=== PATIENT | male | born 1955 | race Caucasian/White ===

== ENCOUNTER 2016-07-30 16:18 | Emergency (ER) | payer BC, MEDICARE ==
[2016-07-30 15:36] LABS: BASOPHILS 0.6 %; BASOPHILS ABSOLUTE 0.04 10/3/uL (0.0-0.16); EOSINOPHILS 3.5 %; EOSINOPHILS ABSOLUTE 0.22 10/3/uL (0.0-0.53); HEMATOCRIT 39.8 % (40.0-51.0); HEMOGLOBIN 13.1 g/dL (13.6-17.8); IMMATURE GRANULOCYTES 0.3 %; IMMATURE GRANULOCYTES ABSOLUTE 0.02 10/3/uL (0.0-0.11); LYMPHOCYTES 36.6 %; LYMPHOCYTES ABSOLUTE 2.32 10/3/uL (0.67-4.30); MEAN CORPUS HGB CONC 32.9 g/dL (32.0-36.0); MEAN CORPUSCULAR HEMOGLOB 29.5 pg (26.0-34.0); MEAN CORPUSCULAR VOLUME 89.6 fL (80-100); MEAN PLATELET VOLUME 10.1 fL (9.2-13.0); MONOCYTES 8.2 %; MONOCYTES ABSOLUTE 0.52 10/3/uL (0.21-1.20); NEUTROPHILS 50.8 %; NEUTROPHILS ABSOLUTE 3.22 10/3/uL (2.02-8.40); PLATELET COUNT 268 10/3/uL (150-400); RBC DISTRIBUTION WIDTH 14.3 % (12.0-16.0); RED CELL COUNT 4.44 10/6/uL (4.7-6.1); WHITE BLOOD CELLS 6.3 10/3/uL (4.5-10.5)
[2016-07-30 15:37] LABS: MANUAL DIFF NO %
[2016-07-30 15:43] LABS: INTERNATIONAL NORMAL RATI 1.9 UNITS (-); PARTIAL THROMBO TIME 41.4 SEC (22.5-37.2); PROTIME (NOT ORD) 21.3 SEC (12.0-14.5)
[2016-07-30 15:52] LABS: A/G RATIO 1.4 (0.7-1.9); ALKALINE PHOSPHATASE 62 U/L (45-117); BUN (BLOOD UREA NITROGEN) 12 MG/DL (6-23); CALCIUM, SERUM 8.7 MG/DL (8.5-10.4); CHLORIDE, SERUM 104 MMOL/L (96-112); CO2 (CARBON DIOXIDE) 27 MMOL/L (24-34); CPK 72 U/L (0-200); CREATININE 1.26 MG/DL (0.70-1.30); GFR AFRICAN AMERICAN 72 ML/MIN (>=60); GFR NON AFRICAN AMERICAN 62 ML/MIN (>=60); GLOBULIN 2.9 G/DL (2.5-4.1); GLUCOSE, SERUM 134 MG/DL (60-99); POTASSIUM, SERUM 4.3 MMOL/L (3.5-5.3); SGOT(AST) 20 U/L (5-40); SGPT(ALT) 27 U/L (5-65); SODIUM, SERUM 141 MMOL/L (135-148); TOTAL BILIRUBIN 0.6 MG/DL (0-1.2); TOTAL PROTEIN 6.9 G/DL (6.0-8.5)
[~2016-07-30 16:18] MED LIST: ADVIL PO; ASAB PO; CELEXA20 PO; CELEXA40 MG PO; CONSTULOSE; CONSTULOSE PO; COREG25 PO; COREG3 PO; FISH-EPA1000 MG PO; FLOMAX4 PO; GLUCPH PO; JANTOVEN1 MG PO; JANTOVEN5 MG PO; KEPPRA250; KEPPRA250 PO; KEPPRA500 PO; KEPPRA750 MG PO; KLONO2 PO; LAMICTAL25; LAMICTAL25 PO; LIPITOR80 MG PO; NIASPAN500 PO; NITROSTAT0.4 MG SL; NORCO1 TA1; PLAVIX PO; PRIN20 PO; PRIN5 PO; PROMEGA PO; SEROQUEL1C PO; SEROQUEL25; SEROQUEL25 PO; SEROQUEL50 MG PO; TRILIPIX135 MG PO; VIMPAT100 MG PO; VITAMIN B-121000 MC1 SL; VITAMIN D2000 UNIT PO; VYTORIN 10/80 T1 TAB PO; XIFAXAN550 MG PO; ZESTRIL20 MG PO
[2016-07-30 16:46] LABS: ASCORBIC ACID (UR NOT ORDER) NEG (NEG); BILIRUBIN, URINE NEGATIVE (NEG); ER URINALYSIS TAT 0 Hrs 10 Mins; KETONE, URINE NEGATIVE (NEG); LEUKOCYTE ESTERASE(NOT OR NEG (NEG); NITRITE (URINE) NEG (NEG); WBC (NOT ORDERED) (RFLEX) < 1 (0-5)
[2016-10-15] MEDS ORDERED: LIPITOR20 PO (09:45)
[2016-10-15] MEDS ORDERED: JENTADUETO 2.51 EACH PO (09:47)
== END 2016-07-30 18:46 | disposition home or self-care (01) ==
LOC: ER 16:18
PROVIDERS: Hospitalist
DX: S40.811A Abrasion of right upper arm, initial encounter (principal); Z95.1 Presence of aortocoronary bypass graft; W19.XXXA Unspecified fall, initial encounter; F17.200 Nicotine dependence, unspecified, uncomplicated; Z79.01 Long term (current) use of anticoagulants
CPT/HCPCS: 70450; 71010; 73090-RT; 80053; 81001; 82550; 85025; 85610; 85730; 93005; 99285

== ENCOUNTER 2016-09-01 12:31 | Observation (INO) | payer BC, MEDICARE ==
--- NOTE | ~2016-09-01 | HP ---
History And Physical [address] [place]. [address] NAME: OC CRISTINA : 59 STATUS : ADM Catarino PAT#: [id number] AGE: 61 ADM/REG DATE : 09/01/16 MR#: [id number] REPORT SERV DATE: 09/02/16 DICTATED BY: MARK MARCUS DATE: 09/02/16 REPORT STATUS : Draft TRANSCRIBED BY: MODL DATE: 09/02/16 DATE OF ADMISSION: 09/01/2016 H AND P/CONSULT REASON FOR CONSULTATION: Diabetes with hyperglycemia with chief complaint of blood sugar of 501. HISTORY OF PRESENT ILLNESS: This is a 61-year-old white male, with a significant history of coronary artery disease, ischemic cardiomyopathy, multiple CVAs, expressive aphasia who began to have some severe chest pain yesterday morning on 09/01/2016, was also having some problems with nausea and vomiting, presented to [facility], was admitted by Cardiology and is now status post heart catheterization where a drug-eluting stent was placed to the posterior descending artery. Most of the history was obtained from review of the medical record in [employer] and [employer] and from the chart itself as patient has difficulty with expressive aphasia and is only able to communicate with writing one-word responses. For example, he was able to write the name of his Kerline but did have difficulty in writing the name of his primary care, which in the computer has indicated as Mark Bruno. His is not present at bedside. No family present at bedside. ALLERGIES: NOTED TO STRAWBERRIES, RED DYE, CHERRIES. SOCIAL HISTORY: Tobacco remote, alcohol occasional. PAST MEDICAL HISTORY: Includes hypertension, coronary artery disease, hyperlipidemia, COPD, seizure disorder, CVAs multiple, expressive aphasia, chronic atrial fibrillation, anxiety, and depression and of course, the diabetes. SURGICAL HISTORY: Includes coronary artery bypass grafting in 1991 and 1995, AICD placement, and prior coronary stenting. FAMILY HISTORY: Significant for coronary artery disease as well. REVIEW OF SYSTEMS: Review of systems is negative except for pertinents mentioned in above HPI. PHYSICAL EXAMINATION: VITAL SIGNS: Temperature 97.7, pulse rate of 93, blood pressure 133/60, respiratory rate of 14. GENERAL: He is alert and able as stated to write one word responses to questions, engaged with the conversation, and in no acute distress for the exam. He is cooperative. NECK: No appreciable lymphadenopathy or JVD is noted. LUNGS: Clear to auscultation but diminished bilaterally. HEART: He has sinus tachycardia per the monitor, history of AICD. He has trace bilateral lower extremity edema. EYES: PERRLA is noted. Sclerae clear. History And Physical [address] [place]. [address] NAME: OC CRISTINA : 59 STATUS : ADM Catarino PAT#: [id number] AGE: 61 ADM/REG DATE : 09/01/16 MR#: [id number] REPORT SERV DATE: 09/02/16 DICTATED BY: MARK MARCUS DATE: 09/02/16 REPORT STATUS : Draft TRANSCRIBED BY: ASHLEE DATE: 09/02/16 SKIN: Otherwise, skin is warm and dry. ABDOMEN: Belly is soft and nontender. Active bowel sounds. LABORATORY WORK: Lab work today showed a white blood cell 7.1, hemoglobin 12.6, hematocrit 37.5, platelets 224. BMP yesterday showed a sodium 135, potassium 4.4, BUN 16, creatinine 1.20. He has also had a CT scan of the abdomen and pelvis during this admission that showed cardiomegaly, accelerated atherosclerotic changes in aorta and renal arteries. Fatty liver. No acute GI or obstruction, and urinalysis that was within normal limits. ASSESSMENT: 1. Diabetes type 2 with hyperglycemia, blood sugar 501. 2. Chest pain in the setting of coronary artery disease, ischemic cardiomyopathy. 3. Hypertension. 4. History of CVA and expressive aphasia. 5. Acute on chronic systolic heart failure, most recent ejection fraction 20%. 6. Seizure disorder. 7. History of AICD. 8. History of hyperlipidemia on statin therapy. PLAN: The patient will receive 10 units of IV insulin regular stat. We will recheck the blood sugar and give additional doses as needed. We will adjust the sliding scale insulin, increased to level 3, and add Levemir at this time for further glycemic control. Follow his lab work in a.m. including a CBC, BMP, magnesium, and also obtain a hemoglobin A1c for completeness sake. Further diuresis and cardiology medicines per the Cardiology attending. I appreciate the opportunity to participate in this consult, and I will follow along with you. SAQIB/AUSTINL Mark Marcus NP / [id number] CC: Frances Carrillo M.D.
--- NOTE | ~2016-09-01 | HP ---
History And Physical [address] [place]. [address] NAME: OC CRISTINA : 59 STATUS : ADM Catarino PAT#: [id number] AGE: 61 ADM/REG DATE : 09/01/16 MR#: [id number] REPORT SERV DATE: 09/01/16 DICTATED BY: SARA HENRY DATE: 09/01/16 REPORT STATUS : Draft TRANSCRIBED BY: MODSmita DATE: 09/01/16 DATE OF ADMISSION: 09/01/2016 INDICATION: Chest pain. Elevated troponin. HISTORY: The patient is a 61-year-old white male with moderate to severe aphasia from a previous stroke with known coronary disease who awakened today and told his family that he was having chest discomfort which is to his left sternum. He also had experienced some nausea and vomiting and apparently passed out. He has had previous coronary bypass grafting in the mid with a DEVRIES to the LAD and 3 vein grafts, one to the PDA and the other 2 likely to LAD and OM (both were occluded as of an arteriogram on 06/09/1999). 04/15/2003, he presented to the emergency room with an acute stroke at that time and and was semiresponsive and aphasic. CT revealed a large left MCA infarct and carotid thrombosis. He has a history of hyperlipidemia and hypertension. He otherwise lives independently. CURRENT HOME MEDICATIONS: Unknown. SOCIAL HISTORY: He is a retired electrician outside. He is , 3 children, has been on disability, has a six-pack of beer a month. He quit using tobacco products in 2002. FAMILY HISTORY: Negative for hypertension, diabetes,or cancer. PAST MEDICAL HISTORY/REVIEW OF SYSTEMS: In addition to the above, there are some outside notes indicating LV dysfunction although I do not have any LV dysfunction. His coronary angiogram from 04/13/[address] Camarena showed an LVEF of 30 to 35% with mitral regurgitation. He had the aforementioned stroke on 04/16/2003. He has had several ER visits over the years with the following data: 01/16/2004, CT of the brain shows moderate involutional changes with encephalomalacia in the left MCA distribution and a small lacunar infarct in the right basal ganglia area. The patient saw Dr. Euceda for a number of years. Apparently the catheterization in March 2003 was causally related to his stroke. FAMILY HISTORY: Positive for premature coronary disease per his . He was hospitalized in October of 2005 with respiratory failure and altered mental status. He has had several admissions over the past several years with chest pain. He has history of COPD. He had another stroke in 2006. At that time, he was placed on Coumadin by Dr. Morales. He had been followed in lipid management at the [facility] for number of years until that closed. As of 2007, he has history of depression, has been seen by the farm machine operator. He has a history of seizure disorder secondary to his stroke. A more recent cardiac evaluation showed an EF of 42% by echo 12/07/2007. Another echocardiogram 02/05/2012 showed an LVEF of 25%. This is the most recent EF evaluation. He also has a history of hepatic steatosis. He was diagnosed with diabetes in 2016. The History And Physical [address] [address] NAME: OC CRISTINA : 59 STATUS : ADM Catarino PAT#: [id number] AGE: 61 ADM/REG DATE : 09/01/16 MR#: [id number] REPORT SERV DATE: 09/01/16 DICTATED BY: SARA HENRY DATE: 09/01/16 REPORT STATUS : Draft TRANSCRIBED BY: ASHLEE DATE: 09/01/16 patient has a dual-chamber ICD in place. Remainder of systems review is negative and noncontributory. Twelve point system review is negative. PHYSICAL EXAMINATION: GENERAL: A 61-year-old white male, alert, interactive albeit with moderate to severe aphasia. VITAL SIGNS: Blood pressure 116/61, pulse 89, and respirations 20. SKIN: No xanthelasmas. He does have . HEENT: He is normocephalic. JVD is not elevated. No carotid bruits. CHEST: There are no crackles. CARDIAC: S1 normal, S2 physiologic. ABDOMEN: Soft. EXTREMITIES: Without edema. No clubbing. NEUROLOGIC: No focal deficits. ECG shows paced or sinus rhythm at a rate of 84 beats per minute. There is low voltage in limb leads with clockwise rotation. Nonspecific interventricular conduction delay. IMPRESSION: Elevated troponin in a 61-year-old gentleman with diabetes, hypertension, previous stroke, and known coronary disease with remote bypass grafting. He will be admitted for further evaluation and therapy. Likely will require coronary angiography. GEOFFREY/ASHLEE Sara Henry M.D. / [id number] CC: Bita Jorge M.D. , [facility]
[2016-09-01 12:45] LABS: BASOPHILS 0.4 %; BASOPHILS ABSOLUTE 0.03 10/3/uL (0.0-0.16); EOSINOPHILS 1.6 %; EOSINOPHILS ABSOLUTE 0.13 10/3/uL (0.0-0.53); ER CBC TAT 0 Hrs 07 Mins; IMMATURE GRANULOCYTES 0.5 %; IMMATURE GRANULOCYTES ABSOLUTE 0.04 10/3/uL (0.0-0.11); LYMPHOCYTES 22.5 %; LYMPHOCYTES ABSOLUTE 1.79 10/3/uL (0.67-4.30); MEAN CORPUS HGB CONC 34.2 g/dL (32.0-36.0); MEAN CORPUSCULAR HEMOGLOB 30.2 pg (26.0-34.0); MEAN CORPUSCULAR VOLUME 88.2 fL (80-100); MEAN PLATELET VOLUME 10.4 fL (9.2-13.0); MONOCYTES 8.1 %; MONOCYTES ABSOLUTE 0.64 10/3/uL (0.21-1.20); NEUTROPHILS 66.9 %; NEUTROPHILS ABSOLUTE 5.31 10/3/uL (2.02-8.40); PLATELET COUNT 236 10/3/uL (150-400); RBC DISTRIBUTION WIDTH 14.6 % (12.0-16.0); RED CELL COUNT 4.31 10/6/uL (4.7-6.1); WHITE BLOOD CELLS 7.9 10/3/uL (4.5-10.5)
[2016-09-01 12:46] LABS: MANUAL DIFF NO %
[2016-09-01 13:08] LABS: A/G RATIO 1.1 (0.7-1.9); ALBUMIN 3.6 G/DL (3.5-5.0); CHLORIDE, SERUM 101 MMOL/L (96-112); CO2 (CARBON DIOXIDE) 24 MMOL/L (24-34); GFR AFRICAN AMERICAN 76 ML/MIN (>=60); GFR NON AFRICAN AMERICAN 66 ML/MIN (>=60); GLOBULIN 3.3 G/DL (2.5-4.1); POTASSIUM, SERUM 4.4 MMOL/L (3.5-5.3); SODIUM, SERUM 135 MMOL/L (135-148); TOTAL BILIRUBIN 0.2 MG/DL (0-1.2); TOTAL PROTEIN 6.9 G/DL (6.0-8.5)
[2016-09-01 13:09] LABS: BUN (BLOOD UREA NITROGEN) 16 MG/DL (6-23)
[2016-09-01 13:10] LABS: ALKALINE PHOSPHATASE 80 U/L (45-117); GLUCOSE, SERUM 319 MG/DL (60-99); SGOT(AST) 18 U/L (5-40); SGPT(ALT) 24 U/L (5-65); TROPONIN I 0.06 NG/ML (<0.05)
[2016-09-01 13:17] LABS: ASCORBIC ACID (UR NOT ORDER) NEG (NEG); BILIRUBIN, URINE NEGATIVE (NEG); ER URINALYSIS TAT 0 Hrs 33 Mins; KETONE, URINE NEGATIVE (NEG); LEUKOCYTE ESTERASE(NOT OR NEG (NEG); NITRITE (URINE) NEG (NEG); WBC (NOT ORDERED) (RFLEX) 2 (0-5)
[2016-09-01] MEDS ORDERED: LAMICTAL PO (15:32)
[2016-09-01] MEDS ORDERED: FENOFIBRIC ACID PO (15:35)
[2016-09-01] MEDS ORDERED: KLONO2 PO (15:36)
[2016-09-01] MEDS ORDERED: COREG PO (15:37)
[2016-09-01] MEDS ORDERED: JANTOVEN5 MG PO (15:37)
[2016-09-01] MEDS ORDERED: NEURONTIN PO (15:38)
[2016-09-01] MEDS ORDERED: [UNRECOGNIZED DRUG - OTHER] PO (15:38)
[2016-09-01] MEDS ORDERED: BUSPAR PO (15:39)
[2016-09-01] MEDS ORDERED: VIMPAT PO (15:39)
[2016-09-01] MEDS ORDERED: CITALOPRAM PO (15:40)
[2016-09-01 15:41] LABS: INTERNATIONAL NORMAL RATI 2.3 UNITS (-)
[2016-09-01] MEDS ORDERED: *UNABLE2 (15:41)
[2016-09-01 15:42] LABS: PROTIME (NOT ORD) 25.4 SEC (12.0-14.5)
[2016-09-01] MEDS ORDERED: LAMICTAL25 PO (15:54)
[2016-09-01] MEDS ORDERED: TRILIPIX135 MG PO (15:56)
[2016-09-01] MEDS ORDERED: NEUR300 PO (15:57)
[2016-09-01] MEDS ORDERED: COREG25 PO (15:57)
[2016-09-01] MEDS ORDERED: ZESTRIL20 MG PO (15:58)
[2016-09-01] MEDS ORDERED: VIMPAT100 MG PO (15:58)
[2016-09-01] MEDS ORDERED: BUSPIRONE7.5 MG PO (15:59)
[2016-09-01] MEDS ORDERED: CELEXA40 MG PO (15:59)
[2016-09-01] MEDS ORDERED: JENTADUETO PO (16:00)
[2016-09-01 16:24] LABS: TROPONIN I 0.09 NG/ML (<0.05)
[2016-09-02 05:34] LABS: BASOPHILS 0.3 %; BASOPHILS ABSOLUTE 0.02 10/3/uL (0.0-0.16); EOSINOPHILS 3.6 %; EOSINOPHILS ABSOLUTE 0.26 10/3/uL (0.0-0.53); HEMATOCRIT 37.5 % (40.0-51.0); HEMOGLOBIN 12.6 g/dL (13.6-17.8); IMMATURE GRANULOCYTES 0.7 %; IMMATURE GRANULOCYTES ABSOLUTE 0.05 10/3/uL (0.0-0.11); LYMPHOCYTES 35.7 %; LYMPHOCYTES ABSOLUTE 2.55 10/3/uL (0.67-4.30); MEAN CORPUS HGB CONC 33.6 g/dL (32.0-36.0); MEAN CORPUSCULAR VOLUME 89.3 fL (80-100); MEAN PLATELET VOLUME 10.4 fL (9.2-13.0); MONOCYTES 9.9 %; MONOCYTES ABSOLUTE 0.71 10/3/uL (0.21-1.20); NEUTROPHILS 49.8 %; NEUTROPHILS ABSOLUTE 3.55 10/3/uL (2.02-8.40); PLATELET COUNT 224 10/3/uL (150-400); RBC DISTRIBUTION WIDTH 14.7 % (12.0-16.0); WHITE BLOOD CELLS 7.1 10/3/uL (4.5-10.5)
[2016-09-02 05:36] LABS: MANUAL DIFF NO %
[2016-09-02 05:43] LABS: INTERNATIONAL NORMAL RATI 1.4 UNITS (-)
[2016-09-02 05:44] LABS: PARTIAL THROMBO TIME 48.8 SEC (22.5-37.2); PROTIME (NOT ORD) 17.2 SEC (12.0-14.5)
[2016-09-02 06:03] LABS: TROPONIN I 0.05 NG/ML (<0.05)
[2016-09-02 06:04] LABS: CHOL/HDL RATIO(NOT ORDER) 13.2 (0-5)
[2016-09-02 10:41] LABS: CK-MB 0.8 NG/ML; CPK 170 U/L (0-200)
[2016-09-02] MEDS ORDERED: JANTOVEN1 MG PO (13:37)
[2016-09-03 04:36] LABS: BASOPHILS 0.1 %; BASOPHILS ABSOLUTE 0.01 10/3/uL (0.0-0.16); EOSINOPHILS 0.4 %; EOSINOPHILS ABSOLUTE 0.04 10/3/uL (0.0-0.53); HEMATOCRIT 33.8 % (40.0-51.0); HEMOGLOBIN 11.3 g/dL (13.6-17.8); IMMATURE GRANULOCYTES 0.5 %; IMMATURE GRANULOCYTES ABSOLUTE 0.06 10/3/uL (0.0-0.11); LYMPHOCYTES 21.1 %; LYMPHOCYTES ABSOLUTE 2.36 10/3/uL (0.67-4.30); MEAN CORPUS HGB CONC 33.4 g/dL (32.0-36.0); MEAN CORPUSCULAR HEMOGLOB 29.6 pg (26.0-34.0); MEAN CORPUSCULAR VOLUME 88.5 fL (80-100); MEAN PLATELET VOLUME 10.6 fL (9.2-13.0); MONOCYTES 9.5 %; MONOCYTES ABSOLUTE 1.07 10/3/uL (0.21-1.20); NEUTROPHILS 68.4 %; NEUTROPHILS ABSOLUTE 7.67 10/3/uL (2.02-8.40); PLATELET COUNT 241 10/3/uL (150-400); RBC DISTRIBUTION WIDTH 14.5 % (12.0-16.0); RED CELL COUNT 3.82 10/6/uL (4.7-6.1)
[2016-09-03 04:50] LABS: MANUAL DIFF NO %; WHITE BLOOD CELLS 11.2 10/3/uL (4.5-10.5)
[2016-09-03 04:54] LABS: BUN (BLOOD UREA NITROGEN) 17 MG/DL (6-23); CALCIUM, SERUM 9.1 MG/DL (8.5-10.4); CHLORIDE, SERUM 94 MMOL/L (96-112); CHOLESTEROL 341 MG/DL (< 200); CO2 (CARBON DIOXIDE) 28 MMOL/L (24-34); CREATININE 1.16 MG/DL (0.70-1.30); GFR AFRICAN AMERICAN 79 ML/MIN (>=60); GFR NON AFRICAN AMERICAN 69 ML/MIN (>=60); HDL CHOLESTEROL 29 MG/DL (> 39); NON-HDL CHOLESTEROL 312 MG/DL (< 160); POTASSIUM, SERUM 4.2 MMOL/L (3.5-5.3); SODIUM, SERUM 135 MMOL/L (135-148); TRIGLYCERIDE 954 MG/DL (< 150); TROPONIN I 0.04 NG/ML (<0.05)
[2016-09-03 04:55] LABS: CHOL/HDL RATIO(NOT ORDER) 11.8 (0-5); CK-MB 0.9 NG/ML; CPK 87 U/L (0-200); GLUCOSE, SERUM 198 MG/DL (60-99)
[2016-09-03 06:38] LABS: INTERNATIONAL NORMAL RATI 1.1 UNITS (-); PROTIME (NOT ORD) 14.5 SEC (12.0-14.5)
[2016-09-03] MEDS ORDERED: ASAB PO (10:07)
[2016-09-03] MEDS ORDERED: PLAVIX PO (10:08)
[2016-09-03] MEDS ORDERED: JANUVIA100 MG PO (10:13)
[2016-09-03] MEDS ORDERED: BUM1 PO (10:16)
[2016-09-03] MEDS ORDERED: NITROSTAT0.4 MG SL (10:16)
[2016-10-15] MEDS ORDERED: LIPITOR20 PO (09:45)
[2016-10-15] MEDS ORDERED: JENTADUETO 2.51 EACH PO (09:47)
== END 2016-09-03 11:03 | disposition home or self-care (01) ==
LOC: ER 12:31 → 5NO 16:58 → SSU1 17:25
PROVIDERS: Emergency Medicine; Internal Medicine Cardiovascular Disease; Nurse Practitioner Family
PROC: 4A023N7 Measurement of Cardiac Sampling and Pressure, Left Heart, Percutaneous Approach (ICD-10-PCS; principal; 2016-09-01)
PROC: B2151ZZ Fluoroscopy of Left Heart using Low Osmolar Contrast (ICD-10-PCS; 2016-09-01)
PROC: 027034Z Dilation of Coronary Artery, One Artery with Drug-eluting Intraluminal Device, Percutaneous Approach (ICD-10-PCS; 2016-09-01)
DX: I25.110 Atherosclerotic heart disease of native coronary artery with unstable angina pectoris (principal); E78.00 Pure hypercholesterolemia, unspecified; I10 Essential (primary) hypertension; E11.9 Type 2 diabetes mellitus without complications; E11.65 Type 2 diabetes mellitus with hyperglycemia; I25.5 Ischemic cardiomyopathy; I69.320 Aphasia following cerebral infarction; Z91.041 Radiographic dye allergy status; Z91.018 Allergy to other foods; J44.9 Chronic obstructive pulmonary disease, unspecified; G40.909 Epilepsy, unspecified, not intractable, without status epilepticus; I48.2 Chronic atrial fibrillation; F32.9 Major depressive disorder, single episode, unspecified; I11.0 Hypertensive heart disease with heart failure; T82.9XXA Unspecified complication of cardiac and vascular prosthetic device, implant and graft, initial encounter; I50.23 Acute on chronic systolic (congestive) heart failure; Z79.82 Long term (current) use of aspirin; Z79.4 Long term (current) use of insulin; Z79.899 Other long term (current) drug therapy
CPT/HCPCS: 36415; 36430; 74176; 80048; 80053; 80061; 81001; 82550; 82553; 82947; 82962; 83036; 83690; 83735; 84460; 84484; 85025; 85610; 85730; 86900; 86901; 93005; 93459; 96365; 96372; 96375; 96376; 99152; 99153; 99285; A9270-GY; C1725; C1760; C1769; C1874; C1887; C8929; C9600; G0378; J0583; J1200; J2250; J2405; J2920; J3010; J3430; P9059; Q9957; Q9967

== ENCOUNTER 2016-09-30 10:51 | Emergency (ER) | payer BC, MEDICARE ==
[~2016-09-30 10:51] MED LIST changes: +*UNABLE2; +BUM1 PO; +BUSPAR PO; +BUSPIRONE7.5 MG PO; +CITALOPRAM PO; +COREG PO; +FENOFIBRIC ACID PO; +JANUVIA100 MG PO; +JENTADUETO PO; +LAMICTAL PO; +NEUR300 PO; +NEURONTIN PO; +VIMPAT PO; +[UNRECOGNIZED DRUG - OTHER] PO
[2016-09-30 11:01] LABS: BASOPHILS 0.2 %; BASOPHILS ABSOLUTE 0.01 10/3/uL (0.0-0.16); EOSINOPHILS 1.4 %; EOSINOPHILS ABSOLUTE 0.08 10/3/uL (0.0-0.53); HEMATOCRIT 34.9 % (36.0-48.0); HEMOGLOBIN 11.8 g/dL (12.0-16.0); IMMATURE GRANULOCYTES 0.4 %; IMMATURE GRANULOCYTES ABSOLUTE 0.02 10/3/uL (0.0-0.11); LYMPHOCYTES 29.6 %; LYMPHOCYTES ABSOLUTE 1.68 10/3/uL (0.67-4.30); MEAN CORPUS HGB CONC 33.8 g/dL (32.0-36.0); MEAN CORPUSCULAR VOLUME 88.8 fL (80-100); MEAN PLATELET VOLUME 9.5 fL (9.2-13.0); MONOCYTES 8.5 %; MONOCYTES ABSOLUTE 0.48 10/3/uL (0.21-1.20); NEUTROPHILS 59.9 %; PLATELET COUNT 266 10/3/uL (150-400); RBC DISTRIBUTION WIDTH 15.4 % (12.0-16.0); RED CELL COUNT 3.93 10/6/uL (4.0-5.6); WHITE BLOOD CELLS 5.7 10/3/uL (4.5-10.5)
[2016-09-30 11:02] LABS: ER CBC TAT 0 Hrs 05 Mins; MANUAL DIFF NO %
[2016-09-30 11:08] LABS: INTERNATIONAL NORMAL RATI 3.1 UNITS (-); PROTIME (NOT ORD) 31.8 SEC (12.0-14.5)
[2016-09-30 11:20] LABS: A/G RATIO 1.2 (0.7-1.9); ALBUMIN 3.4 G/DL (3.5-5.0); ALKALINE PHOSPHATASE 64 U/L (45-117); BUN (BLOOD UREA NITROGEN) 12 MG/DL (6-23); CALCIUM, SERUM 8.4 MG/DL (8.5-10.4); CHLORIDE, SERUM 105 MMOL/L (96-112); CO2 (CARBON DIOXIDE) 27 MMOL/L (24-34); CREATININE 1.08 MG/DL (0.70-1.30); GFR AFRICAN AMERICAN 87 ML/MIN (>=60); GFR NON AFRICAN AMERICAN 75 ML/MIN (>=60); GLOBULIN 2.8 G/DL (2.5-4.1); GLUCOSE, SERUM 160 MG/DL (60-99); POTASSIUM, SERUM 4.3 MMOL/L (3.5-5.3); SGPT(ALT) 17 U/L (5-65); SODIUM, SERUM 139 MMOL/L (135-148); TOTAL BILIRUBIN 0.2 MG/DL (0-1.2); TOTAL PROTEIN 6.2 G/DL (6.0-8.5); TROPONIN I 0.02 NG/ML (<0.05)
[2016-09-30 11:21] LABS: SGOT(AST) 17 U/L (5-40)
[2016-10-15] MEDS ORDERED: LIPITOR20 PO (09:45)
[2016-10-15] MEDS ORDERED: JENTADUETO 2.51 EACH PO (09:47)
== END 2016-09-30 14:51 | disposition home or self-care (01) ==
LOC: ER 10:51
PROVIDERS: Emergency Medicine
DX: R07.9 Chest pain, unspecified (principal); I11.0 Hypertensive heart disease with heart failure; I50.9 Heart failure, unspecified; F32.9 Major depressive disorder, single episode, unspecified; F41.9 Anxiety disorder, unspecified; Z86.73 Personal history of transient ischemic attack (TIA), and cerebral infarction without residual deficits; I48.91 Unspecified atrial fibrillation; Z95.810 Presence of automatic (implantable) cardiac defibrillator; J44.9 Chronic obstructive pulmonary disease, unspecified; Z95.1 Presence of aortocoronary bypass graft; Z95.5 Presence of coronary angioplasty implant and graft; Z88.8 Allergy status to other drugs, medicaments and biological substances
CPT/HCPCS: 71010; 80053; 84484; 85025; 85610; 93005; 96374; 99285; J2405